=== PATIENT | female | born 1930 | race Caucasian/White ===

== ENCOUNTER 2018-09-02 08:16 | Outpatient (CLI) | payer MEDICARE ==
[2018-09-02 11:13] LABS: Chol/HDL Ratio 6.67 %
== END 2018-09-02 08:17 | disposition home or self-care (01) ==
LOC: LAB 08:16
PROVIDERS: ATTEND Internal Medicine
DX: E78.5 Hyperlipidemia, unspecified (principal); J45.909 Unspecified asthma, uncomplicated; K21.9 Gastro-esophageal reflux disease without esophagitis
CPT/HCPCS: 36415; 80061

== ENCOUNTER 2018-12-19 08:26 | Outpatient (CLI) | payer MEDICARE | END 2018-12-19 08:27 | disposition home or self-care (01) | LOC: LAB 08:26 | PROVIDERS: ATTEND Internal Medicine | DX: R73.9 Hyperglycemia, unspecified (principal); M15.9 Polyosteoarthritis, unspecified | CPT/HCPCS: 36415; 83036; 84550 ==